=== PATIENT | male | born 1990 | race Caucasian/White ===

== ENCOUNTER 2016-12-14 09:55 | Emergency (ER) | payer SELFPAY ==
[~2016-12-14] VITALS: Ht 190.5 cm; Wt 108.9 kg
[2016-12-14 11:26] VITALS: BP 152/94
[2016-12-14] MEDS ORDERED: cefTRIAXone SODIUM 250 MG VL IM ONE (11:45)
== END 2016-12-14 12:04 | disposition home or self-care (01) ==
LOC: ER 09:55
DX: N39.0 Urinary tract infection, site not specified (principal); N34.2 Other urethritis
CPT/HCPCS: 96372; 99283; J0696